=== PATIENT | male | born 1995 | race Caucasian/White ===

== ENCOUNTER 2021-02-04 12:54 | Emergency (ER) | payer OTHER ==
[~2021-02-04] VITALS: Ht 167.6 cm; Wt 59.0 kg
[2021-02-04 13:05] VITALS: BP 166/77
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
[2021-02-04] MEDS ORDERED: cephALEXin 500 MG CAP PO ONE (13:40)
[2021-02-04] MEDS ORDERED: SULFAMETH/TRIMETH DS 800/160MG 1 TAB PO ONE (13:40)
[2021-02-04] MEDS ORDERED: CEPH-588 PO (13:41)
[2021-02-04] MEDS ORDERED: SULF-59 PO (13:41)
[2021-02-04] MEDS ORDERED: ACET-8386 PO (13:41)
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
[2021-02-04 13:59] VITALS: BP 150/67
--- NOTE | 2021-02-04 13:59 | NUR ---
Patient discharged with v/s stable. Written and verbal after care instructions given and explained. Patient alert, oriented and verbalized understanding of instructions. Wheel Chair Assisted with to home. All questions addressed prior to discharge. ID band removed. Patient advised to follow up with PMD. Rx of BACTRIM,KEFLEX,NORCO given. Patient educated on indication of medication including possible reaction and side effects. Opportunity to ask questions provided and answered.
== END 2021-02-04 13:59 | disposition home or self-care (01) ==
LOC: MED 12:54
DX: S41.111D Laceration without foreign body of right upper arm, subsequent encounter (principal); L08.9 Local infection of the skin and subcutaneous tissue, unspecified; Z79.899 Other long term (current) drug therapy; X58.XXXD Exposure to other specified factors, subsequent encounter
CPT/HCPCS: 99283

== ENCOUNTER 2023-11-07 21:42 | Emergency (ER) | payer OTHER ==
[~2023-11-07] VITALS: Ht 167.6 cm; Wt 65.8 kg
[~2023-11-07 21:42] MED LIST: ACET-8905 PO; CEPH-588 PO; SULF-59 PO
[2023-11-07 21:45] VITALS: BP 154/94; PULSE 99; RESP 16; TEMP 97.4; O2SAT 99
[2023-11-07 22:45] VITALS: BP 154/94; PULSE 99; RESP 16; TEMP 97.4; O2SAT 99
[2023-11-07] MEDS: IBUPROFEN 600 MG TAB PO ONE (23:10)
[2023-11-07] MEDS: HYDROcodone/APAP 5/325 MG 1 TAB TAB PO ONE (23:10)
[2023-11-07] MEDS: ACETAMINOPHEN EXTRA STRENGTH 500 MG TAB PO ONE (23:11)
[2023-11-07] MEDS ORDERED: ACET-8905 PO (23:18)
== END 2023-11-07 23:24 | disposition home or self-care (01) ==
LOC: MED 21:42
DX: S43.101A Unspecified dislocation of right acromioclavicular joint, initial encounter (principal); Z79.899 Other long term (current) drug therapy; V89.2XXA Person injured in unspecified motor-vehicle accident, traffic, initial encounter; Y93.89 Activity, other specified; Y92.89 Other specified places as the place of occurrence of the external cause; Y99.8 Other external cause status
CPT/HCPCS: 73030; 99284